=== PATIENT | male | born 1990 | race Caucasian/White ===

== ENCOUNTER 2019-03-18 14:43 | Emergency (ER) | payer SELFPAY ==
[~2019-03-18] VITALS: Wt 97.5 kg
[2019-03-18 14:48] VITALS: BP 138/68; PULSE 95; RESP 18
[2019-03-18] MEDS ORDERED: HYDROCODONE/APAP (5/325) TAB PO ONE (16:30)
[2019-03-18] MEDS ORDERED: NAPR-985 PO (17:36)
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
== END 2019-03-18 18:16 | disposition home or self-care (01) ==
LOC: FTE 14:43
DX: M25.511 Pain in right shoulder (principal); M25.562 Pain in left knee
CPT/HCPCS: 73562